=== PATIENT | male | born 1995 | race Two or more races ===

== ENCOUNTER 2022-04-10 17:14 | Emergency (ER) | payer OTHER ==
[~2022-04-10] VITALS: Ht 180.3 cm; Wt 70.0 kg
[2022-04-10 17:44] VITALS: BP 114/73
[2022-04-10] MEDS ORDERED: HYDROcodone-ACET 10/325MG TAB PO ONE (18:00)
[2022-04-10] MEDS ORDERED: ACET-1079 PO (19:39)
[2022-04-10] MEDS ORDERED: CYCL-837 PO (19:51)
== END 2022-04-10 22:29 | disposition left against medical advice (07) ==
LOC: ER 17:17
DX: S13.9XXA Sprain of joints and ligaments of unspecified parts of neck, initial encounter (principal); S13.4XXA Sprain of ligaments of cervical spine, initial encounter; V89.0XXA Person injured in unspecified motor-vehicle accident, nontraffic, initial encounter; Y93.89 Activity, other specified; Y92.89 Other specified places as the place of occurrence of the external cause; Y99.8 Other external cause status
CPT/HCPCS: 71046; 72040; 72100